=== PATIENT | female | born 1990 | race Caucasian/White ===

== ENCOUNTER 2018-10-13 01:40 | Outpatient (CLI) | payer OTHER, SELFPAY ==
[2018-10-13 10:18] LABS: Glucose 1 Hour 139 mg/dL
[2018-10-13 12:13] LABS: Glucose 3 Hour 96 mg/dL
== END 2018-10-13 02:00 ==
PROVIDERS: PCP Obstetrics & Gynecology; Visit Provider Obstetrics & Gynecology
DX: R73.09 Other abnormal glucose (principal)
CPT/HCPCS: 36410; 82951

== ENCOUNTER 2019-08-25 12:47 | Outpatient (REF) | payer OTHER, SELFPAY ==
--- NOTE | 2019-08-25 11:30 | PAPFT_PTH ---
PATIENT: Anna Bustillos LOC: [facility] U#:[id number] AGE/SX: 29/F ROOM: RE08/25/[address]: VAL Kirk : 1990 BED: DIS: 08/25/2019 SPEC #: [id number] RECD: 08/25/19 12:50 STATUS: BETINA REQ #: [id number] GAVIN: 08/25/19 11:[address]: Sayda Cuba DEPT: [facility] Cytology RECD BY: Anusha Urban ENTERED: 08/25/19 12:50 SP TYPE: PAPFT OTHR DR: Keerthi Local Tissues: 1 - CX/ENDOCX FOR PAP SMEARS Procedures: PAP THIN PREP/UVM Screening HPV DNA PROBE Comments: [id number]
[2019-08-26 14:45] LABS: Chlamydia Result Negative (Negative); GC Result Negative (Negative)
== END 2019-08-25 13:07 ==
LOC: LBN 12:47
PROVIDERS: Visit Provider Nurse Practitioner Family
DX: Z11.3 Encounter for screening for infections with a predominantly sexual mode of transmission (principal); Z12.4 Encounter for screening for malignant neoplasm of cervix; Z11.51 Encounter for screening for human papillomavirus (HPV)
CPT/HCPCS: 87491; 87591; 88142; 87624

== ENCOUNTER 2019-09-06 02:34 | Outpatient (CLI) | payer OTHER, SELFPAY ==
--- NOTE | 2019-09-06 08:00 | DI.US_ITS ---
EXAM: US PELVIS TRANSVAGINAL CLINICAL HISTORY: abnormal bleeding pain with IUD,N93.9 TECHNIQUE: Ultrasound performed using standard protocol. COMPARISON: US OB ASSESSMENT - WEIGHT/ABBEY from 06/12/2016 FINDINGS: Pelvic ultrasound was performed transabdominally and transvaginally. Please see the accompanying jessica a sheet for measurements of pelvic structures. Uterus is unremarkable in appearance with an IUD seen in the endometrial cavity. Endometrium is homogeneous in appearance and measures 7 millimeters in t hickness. The ovaries have a normal follicular appearance. No fluid identified in the cul-de-sac. Limited scanning of the kidneys is unremarkable. IMPRESSION: Negative pelvic ultrasound with IUD in place. DATA REPOSITORY:
== END 2019-09-06 02:54 ==
PROVIDERS: PCP Nurse Practitioner Family; Visit Provider Nurse Practitioner Family
DX: R10.2 Pelvic and perineal pain (principal); N93.9 Abnormal uterine and vaginal bleeding, unspecified; Z97.5 Presence of (intrauterine) contraceptive device
CPT/HCPCS: 76830; 76856

== ENCOUNTER 2020-01-30 16:02 | Outpatient (REF) | payer OTHER, SELFPAY ==
[2020-02-01 18:59] LABS: Patient Race White; SARS-CoV-2 RNA Undetected (Undetected); SARS-CoV-2 Specimen Source Nasal
== END 2020-01-30 16:22 ==
LOC: NCHCN 16:02
PROVIDERS: PCP Nurse Practitioner Family; Visit Provider Nurse Practitioner Family
DX: R09.81 Nasal congestion (principal)
CPT/HCPCS: U0003

== ENCOUNTER 2020-03-22 00:30 | Outpatient (CLI) | payer OTHER, SELFPAY ==
--- NOTE | 2020-03-22 07:00 | DI.US_ITS ---
EXAM: US PELVIS CLINICAL HISTORY: check stripe,DYSFUNCTIONAL UTERINE BLEEDING,N93.8 TECHNIQUE: Ultrasound performed using standard protocol. COMPARISON: US US PELVIS TRANSVAGINAL from 09/06/2019 FINDINGS: Pelvic ultrasound was performed transabdominally only. Uterus measures 9 x 5.2 x 8.5 cm. Endometrial stripe is about 9 millimeters in thickness and appears homogeneous. The patient has reportedly had removal of a prior IUD and no IUD is identified at this time. Right ovary measures 35 x 23 x 21 millimeters, left ovary measures 21 x 11 x 13 millimeters. The ova darrell have an unremarkable follicular appearance by transabdominal criteria. No free fluid in the cul-de-sac. Limited scanning of the kidneys is unremarkable.. IMPRESSION: Negative pelvic ultrasound, transabdominal only. DATA REPOSITORY:
== END 2020-03-22 00:50 ==
PROVIDERS: PCP Nurse Practitioner Family; Visit Provider Obstetrics & Gynecology
DX: N93.8 Other specified abnormal uterine and vaginal bleeding (principal)
CPT/HCPCS: 76856

== ENCOUNTER 2020-12-18 09:19 | Outpatient (CLI) | payer OTHER, SELFPAY ==
[2020-12-18 12:29] LABS: Abs Immature Grans 0.02 10^3/uL (0.0-0.06); Absolute Basophil Count 0.03 10^3/uL (0.0-0.2); Absolute Eosinophil Count 0.13 10^3/uL (0.0-0.7); Absolute Lymphocyte Count 1.78 10^3/uL (1.2-3.4); Absolute Monocyte Count 0.68 10^3/uL (0.1-0.8); Absolute Neutrophil Count 6.25 10^3/uL (1.2-6.7); Basophils % 0.3; Eosinophils % 1.5; HCT 39.4 % (36.0-46.0); HGB 12.8 g/dL (11.2-15.7); Immature Grans % 0.2; MCH 29.1 pg (27.0-33.0); MCHC 32.5 % (32.0-36.0); MCV 89.5 fL (80-95); MPV 9.9 fL (8.0-11.0); Monocytes % 7.6; Neutrophils % 70.4; Nucleated RBC 0 %; Platelet Count 201 10^3/uL (130-400); RDW 12.9 % (11.7-14.6); RDW-SD 42.4 fL; WBC 8.89 10^3/uL (4.4-10.8)
[2020-12-18 12:42] LABS: Calculated LDL 106 mg/dL (<100); Cholesterol 174 mg/dL (<200); HDL Cholesterol 57 mg/dL (40-60); TSH (W/Ref FT4) 0.78 uIU/mL (0.36-3.74); Triglyceride 59 mg/dL (<150)
[2020-12-19 10:30] LABS: HIV-1/2 Ag & Ab Screen Negative (Negative)
[2020-12-19 10:39] LABS: Hepatitis C Ab w Rflx HCV PCR Negative (Negative)
== END 2020-12-18 09:20 | disposition home or self-care (01) ==
LOC: LOS 09:19
PROVIDERS: PCP Nurse Practitioner Family; Referring Provider Nurse Practitioner Family; Visit Provider Nurse Practitioner Family
DX: N92.0 Excessive and frequent menstruation with regular cycle (principal); N93.8 Other specified abnormal uterine and vaginal bleeding; Z13.220 Encounter for screening for lipoid disorders; Z11.4 Encounter for screening for human immunodeficiency virus [HIV]; Z11.59 Encounter for screening for other viral diseases
CPT/HCPCS: 36415; 80061; 86803; 87389; 84443; 85025

== ENCOUNTER 2021-04-10 15:22 | Outpatient (REF) | payer OTHER, SELFPAY ==
[2021-04-11 02:29] LABS: COVID-19 RT-PCR UVMMC Result Negative (Negative)
== END 2021-04-10 15:23 | disposition home or self-care (01) ==
LOC: LBN 15:22
PROVIDERS: PCP Nurse Practitioner Family; Visit Provider Nurse Practitioner Family
DX: Z20.822 Contact with and (suspected) exposure to COVID-19 (principal)
CPT/HCPCS: U0003

== ENCOUNTER 2021-04-13 18:32 | Outpatient (REF) | payer OTHER, SELFPAY ==
[2021-04-14 12:27] LABS: COVID-19 RT-PCR UVMMC Result Negative (Negative)
== END 2021-04-13 18:33 | disposition home or self-care (01) ==
LOC: LBN 18:32
PROVIDERS: PCP Nurse Practitioner Family; Visit Provider Nurse Practitioner Family
DX: Z20.822 Contact with and (suspected) exposure to COVID-19 (principal)
CPT/HCPCS: U0003

== ENCOUNTER 2021-04-15 13:12 | Outpatient (REF) | payer OTHER, SELFPAY ==
[2021-04-16 02:03] LABS: COVID-19 RT-PCR UVMMC Result Negative (Negative)
== END 2021-04-15 13:13 | disposition home or self-care (01) ==
LOC: LBN 13:12
PROVIDERS: PCP Nurse Practitioner Family; Visit Provider Nurse Practitioner Family
DX: Z20.822 Contact with and (suspected) exposure to COVID-19 (principal)
CPT/HCPCS: U0003

== ENCOUNTER 2021-06-21 19:12 | Outpatient (REF) | payer OTHER, SELFPAY ==
[2021-06-22 01:25] LABS: COVID-19 RT-PCR UVMMC Result Negative (Negative)
== END 2021-06-21 19:13 | disposition home or self-care (01) ==
LOC: LBN 19:12
PROVIDERS: PCP Nurse Practitioner Family; Visit Provider Nurse Practitioner Family
DX: Z20.822 Contact with and (suspected) exposure to COVID-19 (principal)
CPT/HCPCS: U0003

== ENCOUNTER → 2021-11-27 13:35 | Outpatient (CLI) | payer OTHER, SELFPAY ==
--- NOTE | 2021-11-27 13:44 | DI.RAD_ITS ---
Exam(s) XR CHEST 2V PA LATERAL EXAM: XR CHEST 2V PA LATERAL CLINICAL HISTORY: SOB, ? PNEUMONIA, R06.02. TECHNIQUE: 2D digital imaging was performed. COMPARISON: CR CHEST 2 VIEWS PA,LAT from 03/26/2017 FINDINGS: 2 views: Heart size is normal. The mediastinum is not widened. Lungs are clear. No infiltrates nor pleural effusions. IMPRESSION: No acute pulmonary findings. DATA REPOSITORY: RADIATION DOSE DELIVERED:
== END ==
PROVIDERS: PCP Nurse Practitioner Family; Visit Provider Nurse Practitioner Family
DX: R06.02 Shortness of breath (principal)
CPT/HCPCS: 71046

== ENCOUNTER 2021-11-27 15:27 | Outpatient (REF) | payer OTHER, SELFPAY | END 2021-11-27 15:28 | disposition home or self-care (01) | LOC: LBN 15:27 | PROVIDERS: PCP Nurse Practitioner Family; Visit Provider Nurse Practitioner Family | DX: J06.9 Acute upper respiratory infection, unspecified (principal) | CPT/HCPCS: 87070 ==

== ENCOUNTER 2022-08-06 15:13 | Outpatient (CLI) | payer BC, SELFPAY ==
--- NOTE | 2022-08-06 14:00 | DI.RAD_ITS ---
Exam(s) XR SHOULDER RT COMPLETE 2+V EXAM: XR SHOULDER RT COMPLETE 2+V CLINICAL HISTORY: right shoulder pain. TECHNIQUE: 2D digital imaging was performed of the right shoulder. Two images were obtained. AP an d axillary views were obtained. COMPARISON: No exams were available for comparison FINDINGS: BONES: No acute fracture is present. No bony destructive lesion is seen. JOINTS: No dislocation present. The joint space is well maintained. SOFT TISSUE: Normal. IMPRESSION: Unremarkable radiographs of the right shoulder. DATA REPOSITORY: RADIATION DOSE DELIVERED:
== END 2022-08-06 15:14 | disposition home or self-care (01) ==
LOC: DIORS 15:13
PROVIDERS: PCP Nurse Practitioner Family; Referring Provider Nurse Practitioner Family; Visit Provider Student in an Organized Health Care Education/Training Program
DX: M25.511 Pain in right shoulder (principal)
CPT/HCPCS: 73030

== ENCOUNTER 2022-08-15 00:22 | Outpatient (CLI) | payer BC, SELFPAY ==
--- NOTE | 2022-08-15 09:16 | DI.RAD_ITS ---
Exam(s) XR EYE FOREIGN BODY EXAM: XR EYE FOREIGN BODY INDICATION: ? persistent foreign body,pre mri clearance,z87.821,h/o foreign body. COMPARISON: No exams were available for comparison TECHNIQUE: 2D digital imaging was performed. Three views. FINDINGS: No evidence of radiopaque foreign body. No fracture. The sinuses appear clear is visualized. IMPRESSION: No evidence of metallic foreign body. DATA REPOSITORY: RADIATION DOSE DELIVERED:
== END 2022-08-15 00:42 ==
PROVIDERS: PCP Nurse Practitioner Family; Visit Provider Nurse Practitioner Family
DX: Z87.821 Personal history of retained foreign body fully removed (principal)
CPT/HCPCS: 70030

== ENCOUNTER → 2022-11-17 02:19 | Outpatient (CLI) | payer BC, SELFPAY ==
--- NOTE | 2022-11-17 | DI.US_ITS ---
Exam(s) US BREAST LT COMPLETE US BREAST RT COMPLETE MG MAMMO DIAGNOSTIC BI EXAM: MG MAMMO DIAGNOSTIC BI AND BILATERAL COMPLETE BREAST ULTRASOUND CLINICAL HISTORY: Bilateral breast pain,N64.4. TECHNIQUE: Both CC and MLO images of both breasts were obtained with 3D tomosynthesis technique and utilizing computer aided detection (CAD). Bilateral complete breast ultrasound was performed including all 4 quadrants of both breasts, the ret roareolar regions and both axillary regions. COMPARISON: None. This is a baseline diagnostic mammogram on a 32-year-old patient who has bilatera l relatively symmetrical breast pain. She does not feel a lump. FINDINGS: DIAGNOSTIC BILATERAL MAMMOGRAM: There are no spiculated masses nor malignant-appearing microcalcification groups in either breast. There is no significant architectural distortion or skin thickening-traction. BILATERAL COMPLETE BREAST ULTRASOUND: RIGHT BREAST: There is a solitary ultrasound finding in right breast at the 11 o'clock position which is a wider than taller slightly lobulated 9 by 4 mm nodule exhibiting neutral through transmission. No associated decreased through transmission. No obvious calcifications therein. Probably represen ts a fibroadenoma. There are no other focal findings in all 4 quadrants of the right breast. Scanning of the right axilla is negative for significant adenopathy. LEFT BREAST: No evidence of solid or significant cystic lesions in all 4 quadrants. Scanning of the left axilla is negative for significant adenopathy IMPRESSION: 1. No radiographic evidence of malignancy in either breast. 2. Negative complete left breast ultrasound. 3. Single ultrasound finding in the right breast at the 11 o'clock position which is either an asymme tric lobule or fibroadenoma measuring 9 x 4 mm. This is an incidental finding and does not respond t o her symptoms. Appropriate follow-up is right breast ultrasound in 6 months to ensure stability of this benign-appea ring incidentally found nodule. The patient was informed of the findings and follow-up recommendations by myself prior to leaving the department today. BI-RADS Category 3 - 6 month - Probably Benign Finding: Recommend follow-up mammography in 6 months Breast Density - Category C - Heterogeneously dense Breast density Category C or D implies that the patient has dense breast tissue. Dense breast tissue can make it harder to find cancer on a mammogram. Dense breast tissue is also associated with an incr eased risk of breast cancer. This information about the result of the mammogram report was provided to the patient to raise their awareness. Use this report when you speak with the patient about their risks for breast cancer, which includes their family history. At that time, you may recommend additional screening tests (Ultrasoun d or MRI) as these tests may add significant information. A negative radiographic report should not delay biopsy if a dominant or clinically suspicious mass is present. Up to ten percent of cancers are not identified on mammography. A negative report may reinforce clinical impression. Adenosis and dense breasts may obscure an underlying neoplasm. False positive reports average 6 to 10%. Patient will receive a letter notifying them of these results.
== END ==
PROVIDERS: PCP Nurse Practitioner Family; Visit Provider Obstetrics & Gynecology
DX: N64.4 Mastodynia (principal); Z12.31 Encounter for screening mammogram for malignant neoplasm of breast; N63.13 Unspecified lump in the right breast, lower outer quadrant
CPT/HCPCS: 76642; 77062; 77066; G0279

== ENCOUNTER 2023-06-18 12:44 | Outpatient (REF) | payer BC, SELFPAY | END 2023-06-18 12:45 | disposition home or self-care (01) | LOC: LBN 12:44 | PROVIDERS: PCP Nurse Practitioner Family; Visit Provider Physician Assistant | DX: J02.9 Acute pharyngitis, unspecified (principal) | CPT/HCPCS: 87070 ==

== ENCOUNTER 2023-07-01 04:49 | Outpatient (CLI) | payer BC, SELFPAY ==
[2023-07-01 10:50] LABS: Calculated LDL 110 mg/dL (<100); Cholesterol 192 mg/dL (<200); HDL Cholesterol 66 mg/dL (40-60); TSH (W/Ref FT4) 1.21 uIU/mL (0.36-3.74); Triglyceride 83 mg/dL (<150)
== END 2023-07-01 04:50 | disposition home or self-care (01) ==
LOC: LBO 04:50
PROVIDERS: PCP Nurse Practitioner Family; Visit Provider Nurse Practitioner
DX: R63.5 Abnormal weight gain (principal); Z13.220 Encounter for screening for lipoid disorders
CPT/HCPCS: 36415; 80061; 84443

== ENCOUNTER 2023-07-21 09:55 | Outpatient (REF) | payer BC, SELFPAY ==
--- NOTE | 2023-07-21 09:45 | PAPFT_PTH ---
PATIENT: Anna Bustillos LOC: [facility] U#:[id number] AGE/SX: 33/F ROOM: RE07/21/[address]: Lala Hammer DO : 1990 BED: DIS: 07/21/2023 SPEC #: [id number] RECD: 07/21/23 12:58 STATUS: SOUJason REQ #: [id number] GAVIN: 07/21/23 09:[address]: Lala Hammer DEPT: [facility] Cytology RECD BY: Anusha Urban ENTERED: 07/21/23 12:58 SP TYPE: PAPFT SHIVANI DR: Cecille Elizondo APRN Tissues: 1 - CX/ENDOCX FOR PAP SMEARS Procedures: PAP THIN PREP/UVM Screening HPV DNA PROBE Comments: [id number]
== END 2023-07-21 09:56 | disposition home or self-care (01) ==
LOC: LBN 09:55
PROVIDERS: PCP Nurse Practitioner; Visit Provider Obstetrics & Gynecology
DX: Z12.4 Encounter for screening for malignant neoplasm of cervix (principal); Z87.410 Personal history of cervical dysplasia; N93.8 Other specified abnormal uterine and vaginal bleeding
CPT/HCPCS: 88142; 87624

== ENCOUNTER 2024-10-24 13:45 | Outpatient (REF) | payer BC, SELFPAY | END 2024-10-24 13:46 | disposition home or self-care (01) | LOC: LBN 13:45 | PROVIDERS: PCP Nurse Practitioner; Visit Provider Nurse Practitioner Women's Health | DX: N76.0 Acute vaginitis (principal) | CPT/HCPCS: 87480; 87510; 87660 ==